=== PATIENT | male | born 1945 | race Caucasian/White ===

== ENCOUNTER 2021-06-12 13:56 | Outpatient (CLI) | payer MEDICARE | END 2021-06-12 13:57 | disposition EMS.NT | LOC: EMS 13:56 | DX: R00.1 Bradycardia, unspecified (principal) ==

== ENCOUNTER 2021-06-13 13:08 | Outpatient (CLI) | payer MEDICARE | END 2021-06-13 13:09 | disposition short-term general hospital (02) | LOC: EMS 13:08 | DX: R53.83 Other fatigue (principal); R00.1 Bradycardia, unspecified | CPT/HCPCS: A0425; A0429 ==

== ENCOUNTER 2021-08-08 11:59 | Outpatient (CLI) | payer MEDICARE | END 2021-08-08 12:00 | disposition left against medical advice (07) | LOC: EMS 11:59 | DX: R00.0 Tachycardia, unspecified (principal) ==

== ENCOUNTER 2022-06-25 07:00 | Outpatient (CLI) | payer OTHER, MEDICARE ==
--- NOTE | 2022-06-25 15:51 | XRAY Report ---
PROCEDURE: Knee 2 View RT INDICATIONS: RIGHT LEG WEAKNESS TECHNIQUE: 2 views of the right knee(s) were acquired. COMPARISON: None. FINDINGS: Bones: No fractures or dislocations. No suspicious bony lesions. Tricompartment degenerative awyne ges with tricompartment osteophytes and at least moderate to severe medial compartment joint space lo ss. Soft tissues: No joint effusion. No suspicious soft tissue calcifications. IMPRESSION: Degenerative arthritis with at least moderate to severe medial compartment joint space l oss. No evidence acute bony abnormality of the right knee. If clinical suspicion and/or symptoms persist, further assessment with repeat plain films or advanced imaging (e.g., CT, MRI, or bone scan) may be helpful for further assessment. Reviewed by: Mahesh Hubbard MD on 06/25/2022 3:50 PM PST Approved by: Mahesh Hubbard MD on 06/25/2022 3:50 PM [facility] Station ID: [id number]
--- NOTE | 2022-06-25 15:52 | XRAY Report ---
PROCEDURE: Hip w/Pelvis 1V RT INDICATIONS: RIGHT HIP PAIN TECHNIQUE: AP pelvis with lateral view(s) of right hip(s). COMPARISON: None. FINDINGS: Bones: No fractures or dislocations. Pelvic ring appears intact. No suspicious bony lesions. Mild bilateral hip degenerative change. Soft tissues: The visualized bowel gas pattern is normal. No suspicious soft tissue calcifications. IMPRESSION: Mild bilateral hip degenerative change. No evidence acute bony abnormality of the pelvis and right hip. If clinical suspicion and/or symptoms persist, further assessment with repeat plain films or advanced imaging (e.g., CT, MRI, or bone scan) may be helpful for further assessment. Reviewed by: Mahesh Hubbard MD on 06/25/2022 3:51 PM PST Approved by: Mahesh Hubbard MD on 06/25/2022 3:51 PM PST Station ID: [id number]
== END 2022-06-25 23:59 | disposition home or self-care (01) ==
LOC: DI.S 07:00
PROVIDERS: ATTEND Registered Nurse
DX: M17.11 Unilateral primary osteoarthritis, right knee (principal); M16.0 Bilateral primary osteoarthritis of hip

== ENCOUNTER 2022-06-25 14:45 | Outpatient (CLI) | payer MEDICARE, OTHER | END 2022-06-25 23:59 | disposition home or self-care (01) | LOC: LAB.S 14:45 | PROVIDERS: ATTEND Registered Nurse | DX: R21 Rash and other nonspecific skin eruption (principal) | CPT/HCPCS: 87252 ==

== ENCOUNTER 2023-07-11 22:49 | Outpatient (CLI) | payer MEDICARE | END 2023-07-11 22:50 | disposition EMS.NT | LOC: EMS 22:49 | DX: Z74.2 Need for assistance at home and no other household member able to render care (principal) ==

== ENCOUNTER 2023-12-19 09:56 | Outpatient (CLI) | payer MEDICARE | END 2023-12-19 23:59 | disposition critical access hospital (66) | LOC: EMS 09:56 | DX: R53.1 Weakness (principal); R41.0 Disorientation, unspecified; S20.311A Abrasion of right front wall of thorax, initial encounter; W18.30XA Fall on same level, unspecified, initial encounter; Y92.009 Unspecified place in unspecified non-institutional (private) residence as the place of occurrence of the external cause; I48.91 Unspecified atrial fibrillation | CPT/HCPCS: A0425; A0427 ==

== ENCOUNTER 2023-12-19 10:38 | Emergency (ER) | payer MEDICARE ==
--- NOTE | 2023-12-19 10:52 | ED Physician Documentation ---
PD HPI Fall - Stated complaint Stated Complaint: GLF - Chief complaint Chief Complaint: General - History obtained from History obtained from: Patient, EMS - History of Present Illness Mechanism of injury: Lost balance, Other (he says his knee has been paining him more consistently and hurts enough to give out. this occurred last night going to bathroom and he was on floor until ?neighbor checked on him.) Fall distance: Standing position Timing - onset: How many hours ago (last night when got up to use restroom for urination, had knee pain and feeling of almost fainting. Knee hurt and gave out. He lay on floor for several hours as unable to get up.) Injury(ies) location: No: Head, Neck, Chest, Abdomen PD PAST MEDICAL HISTORY - Past Medical History Cardiovascular: Atrial fibrillation - Past Surgical History Past Surgical History: Yes Cardiovascular: Other - Present Medications Home Medications: Ambulatory Orders Medication Instructions Recorded Confirmed Apixaban [Eliquis] 1 tab PO DAILY 12/19/23 12/19/23 Diclofenac Sodium 1% Gel [Voltaren 2 gm TOP QID #50 gm 12/19/23 Gel] HYDROcod/ACETAM 5/325 [[place] 5/325] 1 ea PO Q6H PRN #18 tablet 12/19/23 Lidocaine 4 % TP DAILY PRN #20 patch 12/19/23 Metoprolol Tartrate [Lopressor] 1 tab PO DAILY 12/19/23 12/19/23 - Allergies Allergies/Adverse Reactions: Allergies Allergy/AdvReac Type Severity Reaction Status Date / Time Penicillins Allergy Unknown Verified 12/19/23 10:55 - Social History Does the pt smoke?: No Smoking Status: Never smoker Results - Vitals Vitals: Vital Signs - 24 hr 12/19/23 12/19/23 12/19/23 10:44 12:03 12:08 Temperature 36.2 C L Heart Rate 121 H 131 H 118 H Respiratory 15 13 Rate Blood Pressure 101/67 108/69 112/62 O2 Saturation 96 94 12/19/23 12/19/23 12/19/23 12:13 12:18 12:33 Temperature Heart Rate 118 H 122 H 122 H Respiratory 14 16 14 Rate Blood Pressure 112/64 125/110 H 132/100 H O2 Saturation 96 98 96 12/19/23 12/19/23 12/19/23 13:03 15:00 15:09 Temperature Heart Rate 125 H 115 H 122 H Respiratory 14 14 16 Rate Blood Pressure 136/110 H 129/98 H 129/84 H O2 Saturation 96 96 94 12/19/23 12/19/23 12/19/23 15:14 15:19 15:49 Temperature Heart Rate 113 H 120 H 110 H Respiratory 14 14 16 Rate Blood Pressure 114/64 108/62 106/66 O2 Saturation 97 96 95 12/19/23 16:46 Temperature Heart Rate 110 H Respiratory 16 Rate Blood Pressure 112/62 O2 Saturation 98 Oxygen O2 Source Room air - Labs Labs: Laboratory Tests 12/19/23 12/19/23 10:50 10:50 WBC 14.3 H RBC 5.25 Hgb 13.4 L Hct 44.4 MCV 84.6 MCH 25.5 L MCHC 30.2 L RDW 15.4 H Plt Count 308 MPV 10.8 Neut # (Auto) 12.1 H Lymph # (Auto) 0.7 L [place] # (Auto) 1.4 H Eos # (Auto) 0.0 Baso # (Auto) 0.0 Absolute Nucleated RBC 0.00 Nucleated RBC % 0.0 Sodium 139 Potassium 4.0 Chloride 106 Carbon Dioxide 25 Anion Gap 8.0 BUN 28 H Creatinine 1.5 H Estimated GFR (MDRD) 46 L Glucose 133 H Calcium 9.1 Magnesium 1.8 Total Bilirubin 1.0 AST 21 ALT 13 Alkaline Phosphatase 45 Total Creatine Kinase 536 H Total Protein 6.6 Albumin 3.6 Globulin 3.0 Albumin/Globulin Ratio 1.2 Lipase < 10 L PD Medical Decision Making - ED course Complexity details: reviewed old records, reviewed results (head CT without ICH. Knee xray showing dignfiicant arthritis and some effusion. ), re-evaluated patient (he was hydrated with IV fluids. Given some pain meds. He is able to stand on his leg, though hurts. Atentive. ), considered differential, d/w patient Reviewed Lab Results: mild elevated creatinine 1.5, same as prior we have on record. CK elevated but only 536, and he is given IV fluids for hydration, pain, and to support the BP. He had not had AM meds, including beta jorje, so it may be fast HR. He is attentive without confusion here, and did not strike head that he is aware. Heac CT without acute findings. I did talk with his friend who says the patient is "my adopted father", meaning close to him. describs having pain with knee so not walking much nor lying exercises. Requests Home PT if we are able to order it. . Departure - Departure Disposition: Home, Self Care Clinical Impression: Knee pain, Fall, Anticoagulant long-term use, Atrial fibrillation Condition: Stable Record reviewed to determine appropriate education?: Yes Follow-Up: ALLAN ESCALONA [Primary Care Provider] - [facility] [Provider Group] Prescriptions: Lidocaine 4 % TP DAILY PRN #20 patch PRN Reason: Pain 1-4 HYDROcod/ACETAM 5/325 [[place] 5/325] 1 ea PO Q6H PRN #18 tablet PRN Reason: Pain Diclofenac Sodium 1% Gel [Voltaren Gel] 2 gm TOP QID #50 gm Comments: Home aides and home physical therapy may be very useful for you. It is harder to get set up through the emergency room. Our social sciences professor suggested your primary care provider can actually get it ordered more easily. Contact them for ordering home physical therapy. This would help with range of motion of the kn ee and perhaps some strengthening. Continue with your knee brace and walker at home to try to decrease the amount of giving out or falling. Given your anticoagulant, it is true you are not really able to take the oral anti-inflammatories. Topical treatment may be somewhat helpful. You said there you have had some marginal improvement with topical treatment. You could do a combination of diclofenac gel 2-3 times daily and then lidocaine patches. In addition you can go Tylenol 650 mg 4 times daily fairly regularly as well. On infrequent occasions you can add a stronger pain medicine if needed. We try not to get regular with opiate type pain medicines but if you need it occasionally for more severe pain. I wrote prescriptions for your medications to your pharmacy. Follow-up with your primary care regarding home health or home physical therapy. Also follow-up with orthopedics regarding other treatment potential such as injections. Ultimately a knee replacement would probably be the most useful but would certainly need to fit in with the comfort level of the orthopedist etc. given your other underlying conditions blood thinners etc. Forms: PCP List Discharge Date/Time: 12/19/23 16:46
--- NOTE | 2023-12-19 11:32 | XRAY Report ---
PROCEDURE: Knee 3V LT INDICATIONS: GLF TECHNIQUE: 3 views of the knee(s) were acquired. COMPARISON: None. FINDINGS: Bones: No fractures or dislocations. No suspicious bony lesions. Tricompartmental joint space marilin rowing with associated osteophytosis. Soft tissues: Moderate knee joint effusion. No suspicious soft tissue calcifications or masses. IMPRESSION: No acute bony abnormality. Moderate knee joint effusion. Mild to moderate tricompartmental osteoarthritis. Kellgren-Fred scale of osteoarthritis: 2. Reviewed by: Abhishek Burroughs MD on 12/19/2023 11:30 AM PDT Approved by: Abhishek Burroughs MD on 12/19/2023 11:30 AM PDT Station ID: [id number]
[2023-12-19 11:37] LABS: BASOPHILS % (AUTO) 0.1 %; EOSINOPHILS % (AUTO) 0.1 %; HCT - HEMATOCRIT 44.4 % (42.0-52.0); HGB - HEMOGLOBIN 13.4 g/dL (14.0-18.0); LYMPHOCYTES # (AUTO) 0.7 10^3/uL (1.5-3.5); MEAN CORPUSCULAR HEMOGLOBIN 25.5 pg (27.0-31.0); MEAN CORPUSCULAR HGB CONC 30.2 g/dL (32.0-36.0); MEAN CORPUSCULAR VOLUME 84.6 fL (80.0-94.0); MEAN PLATELET VOLUME 10.8 fL (7.4-11.4); MONOCYTES # (AUTO) 1.4 10^3/uL (0.0-1.0); MONOCYTES % (AUTO) 9.8 %; NEUTROPHILS # (AUTO) 12.1 10^3/uL (1.5-6.6); NEUTROPHILS % (AUTO) 84.7 %; PLT - PLATELET COUNT 308 10^3/uL (130-450); RED BLOOD COUNT 5.25 10^6/uL (4.70-6.10); RED CELL DISTRIBUTION WIDTH 15.4 % (12.0-15.0); WHITE BLOOD COUNT 14.3 x10^3/uL (4.8-10.8)
[2023-12-19 11:44] LABS: ALBUMIN 3.6 g/dL (3.2-5.5); ALBUMIN/GLOBULIN RATIO 1.2 (1.0-2.2); ALKALINE PHOSPHATASE 45 IU/L (42-121); ALT ALANINE AMINOTRANSFERASE 13 IU/L (10-60); AST ASPARTATE AMINOTRANSFERASE 21 IU/L (10-42); BUN - BLOOD UREA NITROGEN 28 mg/dL (6-20); CALCIUM 9.1 mg/dL (8.5-10.3); CARBON DIOXIDE - CO2 25 mmol/L (21-32); CHLORIDE 106 mmol/L (101-111); CK- CREATINE KINASE 536 IU/L (30-223); CREATININE 1.5 mg/dL (0.6-1.3); GFR - MDRD 46 (>89); GLUCOSE 133 mg/dL (74-104); MAGNESIUM 1.8 mg/dL (1.7-2.3); SODIUM 139 mmol/L (135-145); TOTAL PROTEIN 6.6 g/dL (6.4-8.9)
[2023-12-19 11:47] LABS: LIPASE < 10 U/L (11-82)
[2023-12-19] MEDS: METOPROLOL 5 MG/5 ML VIAL IVP STA ×2 (11:57→15:04)
[2023-12-19] MEDS: HYDROmorphone 0.5 MG/0.5 ML SYRINGE IVP STA (12:03)
[2023-12-19] MEDS: SODIUM CHLORIDE 0.9% 1,000 ML IV STA (12:04)
--- NOTE | 2023-12-19 12:45 | CT Report ---
PROCEDURE: Head WO INDICATIONS: fall, on DOAC TECHNIQUE: Noncontrast 4.5 mm thick angled axial sections acquired from the foramen magnum to the vertex. For r adiation dose reduction, the following was used: automated exposure control, adjustment of mA and/or kV according to patient size. COMPARISON: None. FINDINGS: Image quality: Excellent. CSF spaces: Basal cisterns are patent. No extra-axial fluid collections. Ventricles are normal in size and shape. Brain: No midline shift. No intracranial masses or hemorrhage. [place]-white matter interface is norm al. Intracranial carotid calcifications. 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 Age-related volume loss and small vessel ischemic change. Skull and face: Calvarium and visualized facial bones are intact, without suspicious lesions. Sinuses: Visualized sinuses and mastoids are clear. IMPRESSION: No acute intracranial pathology. Reviewed by: Mahesh Hubbard MD on 12/19/2023 12:44 PM PDT Approved by: Mahesh Hubbard MD on 12/19/2023 12:44 PM PDT Station ID: [id number]
[2023-12-19] MEDS: METOPROLOL SUCCINATE 50 MG TABLET PO STA (15:37)
[2023-12-19 16:53] VITALS: BP 112/62; O2SAT 98
== END 2023-12-19 16:46 | disposition home or self-care (01) ==
LOC: EDUNIT# → ED 10:38
DX: M25.562 Pain in left knee (principal); W18.30XA Fall on same level, unspecified, initial encounter; I48.91 Unspecified atrial fibrillation; Z79.01 Long term (current) use of anticoagulants; M17.12 Unilateral primary osteoarthritis, left knee; Z79.899 Other long term (current) drug therapy; Z91.81 History of falling
CPT/HCPCS: 36415; 70450; 73562; 80053; 82550; 83690; 83735; 85025; 96374; 96375; 96376; 99284; A9270; J1170

== ENCOUNTER 2024-01-05 23:17 | Outpatient (CLI) | payer MEDICARE | END 2024-01-05 23:18 | disposition EMS.NT | LOC: EMS 23:17 | DX: Z03.89 Encounter for observation for other suspected diseases and conditions ruled out (principal); Z91.81 History of falling ==

== ENCOUNTER 2024-01-13 12:13 | Outpatient (CLI) | payer MEDICARE | END 2024-01-13 23:59 | disposition critical access hospital (66) | LOC: EMS 12:13 | DX: K62.5 Hemorrhage of anus and rectum (principal); Z79.01 Long term (current) use of anticoagulants | CPT/HCPCS: A0425; A0429 ==

== ENCOUNTER 2024-01-13 12:53 | Emergency (ER) | payer MEDICARE ==
[2024-01-13 13:14] LABS: BASOPHILS % (AUTO) 0.2 %; EOSINOPHILS # (AUTO) 0.1 10^3/uL (0.0-0.7); EOSINOPHILS % (AUTO) 0.5 %; HCT - HEMATOCRIT 44.4 % (42.0-52.0); HGB - HEMOGLOBIN 13.7 g/dL (14.0-18.0); LYMPHOCYTES % (AUTO) 5.3 %; MEAN CORPUSCULAR HEMOGLOBIN 25.9 pg (27.0-31.0); MEAN CORPUSCULAR HGB CONC 30.9 g/dL (32.0-36.0); MEAN CORPUSCULAR VOLUME 84.1 fL (80.0-94.0); MEAN PLATELET VOLUME 10.4 fL (7.4-11.4); MONOCYTES # (AUTO) 1.5 10^3/uL (0.0-1.0); MONOCYTES % (AUTO) 8.1 %; NEUTROPHILS # (AUTO) 15.4 10^3/uL (1.5-6.6); NEUTROPHILS % (AUTO) 85.6 %; PLT - PLATELET COUNT 373 10^3/uL (130-450); RED BLOOD COUNT 5.28 10^6/uL (4.70-6.10); RED CELL DISTRIBUTION WIDTH 15.1 % (12.0-15.0)
[2024-01-13 13:18] LABS: INR 1.6 (0.8-1.2); PT - PROTHROMBIN TIME 17.2 secs (9.9-12.6)
[2024-01-13] MEDS: ONDANSETRON 4 MG/2 ML VIAL IVP STA (13:20)
[2024-01-13] MEDS: fentaNYL 100 MCG/2 ML VIAL IVP ONE (13:22)
[2024-01-13 13:26] LABS: ALBUMIN 4.1 g/dL (3.2-5.5); ALBUMIN/GLOBULIN RATIO 1.5 (1.0-2.2); BILIRUBIN,TOTAL 0.7 mg/dL (0.2-1.0); CALCIUM 9.8 mg/dL (8.5-10.3); CREATININE 1.3 mg/dL (0.6-1.3); POTASSIUM 4.6 mmol/L (3.5-4.5); TOTAL PROTEIN 6.8 g/dL (6.4-8.9)
[2024-01-13] MEDS: MINERAL OIL ENEMA 133 ML BOTTLE RC STA (15:14)
[2024-01-13] MEDS ORDERED: iohexoL-300 100 ML VIAL ONE (15:37)
--- NOTE | 2024-01-13 16:54 | CT Report ---
PROCEDURE: Angio Abdomen INDICATIONS: GI Bleeding TECHNIQUE: Arteriographic CT images were obtained of the abdomen and pelvis with IV contrast. Multipl kori reformats were obtained. Maximum intensity projection images were obtained. COMPARISON: None FINDINGS: Image quality: Diagnostic Lower chest: Mild pleural thickening at the bases. Mild atelectasis. Small hiatal hernia. Aortic valve replacement. Partially seen cardiac electrode leads. Liver: Unremarkable Gallbladder and biliary system: Cholelithiasis, nondilated Pancreas: Mildly dilated pancreatic duct measuring 4 to 5 mm, without discrete mass identified. Spleen: Nonenlarged Adrenals: No discrete nodules Kidneys: No solid mass or hydronephrosis. Scattered cysts are present. Subcentimeter lesions are too small characterize, usually also cysts. Vessels and lymph nodes: No abdominal aortic aneurysm. Atherosclerotic calcifications are present. 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 The SMA however appears patent. The MELYSSA appears patent. The iliac arteries appear patent. The venous structures are not well assessed on this study. Bowel and peritoneum: Small hiatal hernia and mild nonspecific distal esophageal wall thickening. The re is no evidence of small bowel obstruction. There is no brisk arterial bleed identified. There is i ncreased fecal loading, particularly in the rectum, with moderate to large rectal stool ball and mild wall thickening. No evidence of acute inflammation elsewhere. No pathologic ascites or hemoperitoneum Body wall: Unremarkable Pelvis: Bladder is unremarkable. The prostate is not well eval on this study, dystrophic calcificatio ns are seen Bones: There are degenerative changes. IMPRESSION: No acute small bowel obstruction. Increased fecal loading, particularly in the rectum with mild wall thickening, possibly stercoral proctocolitis. No brisk arterial bleeding is identified. In the setting of suspected GI bleed, consider endoscopy co rrelation. 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 The SMA and MELYSSA appear patent, mild overall atherosclerotic disease of the aorta and its branches. The venous structures are not well evaluated on this study. Other findings above. Reviewed by: Haroon Messina MD on 01/13/2024 4:53 PM PDT Approved by: Haroon Messina MD on 01/13/2024 4:53 PM PDT Station ID: [id number]
[2024-01-13] MEDS: iohexoL-300 100 ML VIAL IVP ONE (17:54)
[2024-01-13 18:08] VITALS: BP 123/84; O2SAT 97
[2024-01-13 18:31] LABS: BASOPHILS # (AUTO) 0.1 10^3/uL (0.0-0.1); BASOPHILS % (AUTO) 0.3 %; EOSINOPHILS # (AUTO) 0.2 10^3/uL (0.0-0.7); EOSINOPHILS % (AUTO) 1.1 %; HCT - HEMATOCRIT 44.7 % (42.0-52.0); HGB - HEMOGLOBIN 13.7 g/dL (14.0-18.0); LYMPHOCYTES % (AUTO) 7.2 %; MEAN CORPUSCULAR HEMOGLOBIN 25.4 pg (27.0-31.0); MEAN CORPUSCULAR HGB CONC 30.6 g/dL (32.0-36.0); MEAN CORPUSCULAR VOLUME 82.8 fL (80.0-94.0); MEAN PLATELET VOLUME 10.4 fL (7.4-11.4); MONOCYTES # (AUTO) 1.2 10^3/uL (0.0-1.0); MONOCYTES % (AUTO) 8.2 %; NEUTROPHILS # (AUTO) 11.9 10^3/uL (1.5-6.6); NEUTROPHILS % (AUTO) 82.9 %; PLT - PLATELET COUNT 359 10^3/uL (130-450); WHITE BLOOD COUNT 14.4 x10^3/uL (4.8-10.8)
--- NOTE | 2024-01-13 18:49 | ED Physician Documentation ---
History of Present Illness - Stated complaint Stated Complaint: RECTAL BLEED - Chief complaint Chief Complaint: Abd Pain - Additonal information Additional information: 78-year-old comes in bright red blood per rectum. Reports 4 to 5 days since last bowel movement. Was straining to use the bathroom earlier today and noticed a copious amount of red blood coming from his rectum. Is on Eliquis for A-fib. Review of Systems Constitutional: denies: Fever Eyes: denies: Loss of vision Ears: denies: Loss of hearing Nose: denies: Rhinorrhea / runny nose Throat: denies: Dental pain / toothache Cardiac: denies: Chest pain / pressure Respiratory: denies: Dyspnea GI: reports: Bloody / black stool. denies: Abdominal Pain, Nausea, Vomiting, Hematemesis PD PAST MEDICAL HISTORY - Past Medical History Cardiovascular: Atrial fibrillation - Past Surgical History Past Surgical History: Yes Cardiovascular: Other - Present Medications Home Medications: Ambulatory Orders Medication Instructions Recorded Confirmed Apixaban [Eliquis] 1 tab PO DAILY 12/19/23 12/19/23 Diclofenac Sodium 1% Gel [Voltaren 2 gm TOP QID #50 gm 12/19/23 Gel] HYDROcod/ACETAM 5/325 [[place] 5/325] 1 ea PO Q6H PRN #18 tablet 12/19/23 Lidocaine 4 % TP DAILY PRN #20 patch 12/19/23 Metoprolol Tartrate [Lopressor] 1 tab PO DAILY 12/19/23 12/19/23 - Allergies Allergies/Adverse Reactions: Allergies Allergy/AdvReac Type Severity Reaction Status Date / Time Penicillins Allergy Unknown Verified 01/13/24 13:08 - Social History Does the pt smoke?: No Smoking Status: Never smoker PD ED PE NORMAL - General General: Alert and oriented X 3 - HEENT HEENT: Atraumatic - Neck Neck: Supple, no meningeal sign - Cardiac Cardiac: RRR - Respiratory Respiratory: No respiratory distress - Abdomen Abdomen: Normal bowel sounds, Soft, Non tender, Non distended - Rectal Rectal: Other (Fecal impaction. Copious feces removed during disimpaction with streaks of red blood.) Results - Vitals Vitals: Vital Signs - 24 hr 01/13/24 01/13/24 01/13/24 13:04 13:40 14:00 Temperature 35.8 C L Heart Rate 100 97 103 H Respiratory 14 14 15 Rate Blood Pressure 121/77 117/80 125/84 H O2 Saturation 98 95 96 01/13/24 01/13/24 01/13/24 14:30 15:00 15:30 Temperature Heart Rate 106 H 88 102 H Respiratory 14 20 18 Rate Blood Pressure 107/63 101/69 O2 Saturation 96 97 96 01/13/24 17:58 Temperature Heart Rate 98 Respiratory 18 Rate Blood Pressure 123/84 H O2 Saturation 97 Oxygen O2 Source Room air - Labs Labs: Microbiology 01/13/24 15:00 Occult Blood - Final Stool Laboratory Tests 01/13/24 01/13/24 01/13/24 13:07 13:07 13:07 WBC 18.0 H RBC 5.28 Hgb 13.7 L Hct 44.4 MCV 84.1 MCH 25.9 L MCHC 30.9 L RDW 15.1 H Plt Count 373 MPV 10.4 Neut # (Auto) 15.4 H Lymph # (Auto) 1.0 L [place] # (Auto) 1.5 H Eos # (Auto) 0.1 Baso # (Auto) 0.0 Absolute Nucleated RBC 0.00 Nucleated RBC % 0.0 PT 17.2 H INR 1.6 H Sodium 137 Potassium 4.6 H Chloride 102 Carbon Dioxide 29 Anion Gap 6.0 BUN 22 H Creatinine 1.3 Estimated GFR (MDRD) 54 L Glucose 106 H Calcium 9.8 Total Bilirubin 0.7 AST 19 ALT 20 Alkaline Phosphatase 49 Total Protein 6.8 Albumin 4.1 Globulin 2.7 Albumin/Globulin Ratio 1.5 Lipase 25 01/13/24 18:25 WBC 14.4 H RBC 5.40 Hgb 13.7 L Hct 44.7 MCV 82.8 MCH 25.4 L MCHC 30.6 L RDW 15.0 Plt Count 359 MPV 10.4 Neut # (Auto) 11.9 H Lymph # (Auto) 1.0 L [place] # (Auto) 1.2 H Eos # (Auto) 0.2 Baso # (Auto) 0.1 Absolute Nucleated RBC 0.00 Nucleated RBC % 0.0 PT INR Sodium Potassium Chloride Carbon Dioxide Anion Gap BUN Creatinine Estimated GFR (MDRD) Glucose Calcium Total Bilirubin AST ALT Alkaline Phosphatase Total Protein Albumin Globulin Albumin/Globulin Ratio Lipase PD Medical Decision Making - ED course Complexity details: reviewed results, re-evaluated patient, considered differential, d/w patient ED course: 78-year-old male presents to the emergency department chief complaints constipa tion and blood per rectum. Afebrile, he medically stable on arrival to the emergency department. Abdominal exam is benign. No focal tenderness, guarding, rebound, rigidity that would be suggestive of acute peritonitis or intra-abdominal obstruction or surgical emergency. His rectal exam demonstrates fecal impaction with dark stool with streaks of blood in it. No melanotic stool and no active hemorrhaging from the rectum during my evaluation or during his stay in the emergency department. His hemoglobin is stable after several hours. CT of his abdomen pelvis is obtained which demonstrates some sterile colitis as well as heavy stool burden. His care is discussed with the hospitalist service and he is offered hospitalization however he declines this stating that he feels much better after having a bowel movement here in the emergency department. Given that there is no sign of active bleeding I do believe that the sterile colitis is likely secondary to the fecal impaction and given that today's obstruction is now resolved I do believe it is likely that his symptoms should resolve however he is instructed to return to the emergency department immediately for persistent or worsening bleeding or any other new or concerning symptoms. He is otherwise encouraged to follow-up with his primary care doctor. Clear return precautions given prior to discharge. Departure - Departure Disposition: 01 Home, Self Care Clinical Impression: BRBPR (bright red blood per rectum), Fecal impaction Instructions: ED Impaction Fecal Treated Comments: [facility] Today in the emergency department you were treated for fecal impaction. Your CT scan showed some inflammation around your colon. Your blood work is otherwise pretty reassuring here with no signs of ongoing blood loss and no signs of active bleeding on your CT. You are offered hospitalization which you have declined. It is important that if you have worsening bleeding at any time that you return to the emergency department immediately. Elsewise I do recommend following up with your primary care doctor. Please continue to take your currently prescribed MiraLAX and other stool softeners. Please increase your intake and fiber for fluids and natural probiotics. If it anytime you develop any new or worsening symptoms please do not hesitate to return. Forms: PCP List
== END 2024-01-13 19:19 | disposition home or self-care (01) ==
LOC: EDUNIT# → ED 12:53
DX: K62.5 Hemorrhage of anus and rectum (principal); K56.41 Fecal impaction
CPT/HCPCS: 36415; 74175; 80053; 82272; 83690; 85025; 85610; 96374; 99283; 99284; A9270; Q9967